=== PATIENT | male | born 1990 | race Caucasian/White ===

== ENCOUNTER 2022-02-09 16:55 | Emergency (ER) | payer BC, SELFPAY ==
[2022-02-09 17:00] VITALS: BP 160/81; PULSE 76; RESP 17; TEMP 36.3; O2SAT 100
--- NOTE | 2022-02-09 17:43 | ED.EYEPROB ---
HPI - Eye Problem General Chief complaint: Eye Problems Stated complaint: R. eye infection Time Seen by Provider: 02/09/22 17:16 History of Present Illness HPI Narrative: Patient is a 31-year-old male here for evaluation of right eye irritation and redness today. Patient states that he woke up with the irritation. He does have a history of styes. Denies any changes to his vision, pain with extraocular movements, double vision, limitation of eye movement. He wears glasses and is not currently wearing them. Related Data Allergies Allergy/AdvReac Type Severity Reaction Status Date / Time cefaclor [From [facility]] Allergy Unknown Verified 02/09/22 17:12 Sulfa (Sulfonamide Allergy Unknown Verified 02/09/22 17:12 Antibiotics) Review of Systems Review of Systems: Gen: Denies fevers or chills Eyes: Reports right eye irritation. Denies visual change ENT: Denies congestion Respiratory: Denies shortness of breath or cough CV: Denies chest pain or palpitations GI: Denies abdominal pain nausea, emesis or diarrhea denies burning, urgency, frequency or hematuria Musculoskeletal: Denies back pain or muscle pain Neuro: Denies numbness, tingling, weakness or focal weakness Skin: Denies rash Except as documented, all other systems reviewed and negative Exam Narrative: Gen: Alert, oriented, no acute distress Eyes: Right conjunctivae is slightly injected. No pain with extraocular movements. Pupils equal round and reactive to light. Pinpoint lesion noted to right inner lower eyelid. fluorescein exam with no discrete area of uptake. No cellulitis in the periorbital area. Pulm: Respirations even and unlabored, symmetric thorax expansion, no audible stridor or visible cyanosis CV: Regular rate GI: No distension, no voluntary/involuntary guarding Neuro: AOx4, moves all extremities without apparent difficulty or weakness, follows commands Skin: No jaundice, no visible bruising, rashes, lesions or wounds on exposed skin Psych: Normal mood/affect, insight/judgement good, adequate fund of knowledge, recent/remote memory intact Course Vital Signs Vital signs: Vital Signs Temperature 97.3 F L 02/09/22 17:00 Pulse Rate 76 02/09/22 17:00 Respiratory Rate 17 02/09/22 17:00 Blood Pressure 160/81 H 02/09/22 17:00 Pulse Oximetry 100 02/09/22 17:00 Oxygen Delivery Room Air 02/09/22 17:00 Temperature 97.3 F L 02/09/22 17:00 Pulse Rate 76 02/09/22 17:00 Respiratory Rate 17 02/09/22 17:00 Blood Pressure 160/81 H 02/09/22 17:00 Pulse Oximetry 100 02/09/22 17:00 Oxygen Delivery Room Air 02/09/22 17:00 MDM - Eye Problem MDM Narrative Medical decision making narrative: 31-year-old male here for evaluation of right eye irritation and redness today. He has evidence of chalazion on exam with likely reactive swelling under his eyelid. No corneal abrasion or FB noted on exam. No evidence of preseptal or orbital cellulitis, as patient has no eyelid swelling, no pain with extraocular movements. Visual acuity decreased but patient not wearing his glasses. Will cover with abx and encourage follow up with his eye doctor this week. Discharge Plan Discharge Clinical Impression: Chalazion Patient Disposition: Home, Self-Care Condition: Stable Instructions: Antibiotic Form Additional Instructions: Please follow up with your product management analyst this week. Use the antibiotic ointment as directed and take the doxycycline as indicated. Return if you develop pain with eye movements, decreased vision, fevers, chills. Prescriptions: New erythromycin 5 mg/gram (0.5 %) ointment 1 applic RIGHT EYE DAILY Qty: 50 0RF doxycycline hyclate 100 mg capsule 100 mg PO BID Qty: 10 0RF Follow-up/Referrals: PHYSICIAN,RE[employer]ATION PLANT OPERATOR [Primary Care Provider] -
[2022-02-09] MEDS: FLUORESCEIN SOD 1 MG/STRIP EACH EYE (18:20)
[2022-02-09] MEDS: TETRACAINE HCL 0.5% OPHTH SOLN 4 ML BTL 1 DROP EACH EYE (18:21)
== END 2022-02-09 19:21 | disposition home or self-care (01) ==
PROVIDERS: Emergency Provider Emergency Medicine
DX: H00.12 Chalazion right lower eyelid (principal)
CPT/HCPCS: 99283